=== PATIENT | female | born 1955 | race Two or more races ===

== ENCOUNTER 2023-12-12 11:13 | Outpatient (CLI) | payer OTHER | END 2023-12-12 11:14 | disposition home or self-care (01) | LOC: NUCLEAR 11:13 | PROVIDERS: ATTEND Internal Medicine Cardiovascular Disease | DX: I25.9 Chronic ischemic heart disease, unspecified (principal); I87.2 Venous insufficiency (chronic) (peripheral) ==

== ENCOUNTER 2023-12-14 11:33 | Outpatient (CLI) | payer OTHER | END 2023-12-14 11:35 | disposition home or self-care (01) | LOC: NUCLEAR 11:33 | PROVIDERS: ATTEND Internal Medicine | DX: I73.9 Peripheral vascular disease, unspecified (principal); I87.2 Venous insufficiency (chronic) (peripheral) ==

== ENCOUNTER 2024-07-13 07:20 | Outpatient (CLI) | payer OTHER | END 2024-07-13 07:21 | disposition home or self-care (01) | LOC: NUCLEAR 07:20 | PROVIDERS: ATTEND Internal Medicine | DX: I20.9 Angina pectoris, unspecified (principal) | CPT/HCPCS: 78452; 93017; A9500 ==